=== PATIENT | male | born 1980 | race Caucasian/White ===

== ENCOUNTER 2017-11-16 23:36 | Emergency (ER) | payer OTHER ==
[~2017-11-16] VITALS: Ht 177.8 cm; Wt 113.4 kg
[~2017-11-16 23:36] MED LIST: AMPDEX10CR PO; CYCL10; DIVA500ER PO; GLIP10 PO; HYDACE5 PO; IBUP600 PO; IBUP800 PO; LISI20 PO; METF500 PO; Norco 5-325 Ta1 EACH PO; Novolin R100 UNIT/M SC; TRAZ100 PO
[2017-11-17] MEDS ORDERED: INSULANPEN SC (00:43)
[2017-11-17] MEDS ORDERED: LAMOTRIGINE50 MG PO (00:44)
[2017-11-17] MEDS ORDERED: Cleocin HCl300 MG PO (01:57)
[2017-11-17] MEDS ORDERED: IBUP800 PO (01:57)
== END 2017-11-17 02:30 | disposition home or self-care (01) ==
LOC: ER 23:36
DX: L03.116 Cellulitis of left lower limb (principal); F31.9 Bipolar disorder, unspecified; E11.9 Type 2 diabetes mellitus without complications; Z88.2 Allergy status to sulfonamides; Z79.899 Other long term (current) drug therapy; Z79.4 Long term (current) use of insulin; Z87.891 Personal history of nicotine dependence
CPT/HCPCS: 99282